=== PATIENT | female | born 1995 | race Caucasian/White ===

== ENCOUNTER → 2024-02-05 12:46 | Outpatient (REF) | payer BC, SELFPAY | LOC: WDC 12:46 | PROVIDERS: ATTENDING PHYSICIAN Nurse Practitioner Family | DX: N63.20 Unspecified lump in the left breast, unspecified quadrant (principal); N63.24 Unspecified lump in the left breast, lower inner quadrant | CPT/HCPCS: 76642 ==

== ENCOUNTER → 2024-07-23 13:50 | Outpatient (REF) | payer OTHER, SELFPAY | LOC: PNTC 13:50 | PROVIDERS: ATTENDING PHYSICIAN Nurse Practitioner Family | DX: O36.80X0 Pregnancy with inconclusive fetal viability, not applicable or unspecified (principal) | CPT/HCPCS: 76801 ==

== ENCOUNTER → 2024-08-11 13:25 | Outpatient (REF) | payer OTHER, SELFPAY | LOC: PNTC 13:25 | PROVIDERS: ATTENDING PHYSICIAN Obstetrics & Gynecology | DX: Z36.0 Encounter for antenatal screening for chromosomal anomalies (principal); Z36.82 Encounter for antenatal screening for nuchal translucency | CPT/HCPCS: 76801; 76813 ==

== ENCOUNTER → 2024-09-01 13:47 | Outpatient (REF) | payer OTHER, SELFPAY | LOC: PNTC 13:47 | PROVIDERS: ATTENDING PHYSICIAN Obstetrics & Gynecology | DX: O99.210 Obesity complicating pregnancy, unspecified trimester (principal) | CPT/HCPCS: 76805 ==

== ENCOUNTER → 2024-09-30 13:59 | Outpatient (REF) | payer OTHER, SELFPAY | LOC: PNTC 13:59 | PROVIDERS: ATTENDING PHYSICIAN Obstetrics & Gynecology | DX: O99.210 Obesity complicating pregnancy, unspecified trimester (principal) | CPT/HCPCS: 76811 ==

== ENCOUNTER 2024-10-03 10:58 | Emergency (ER) | payer OTHER, SELFPAY ==
[2024-10-03 11:05] VITALS: BP 137/96
--- NOTE | 2024-10-03 13:22 | ED.GENMED ---
History of Present Illness
<ROSIO Armendariz - Last Filed: 10/04/24 15:34>
General
Chief Complaint: Ear Problem
Source: patient
Exam Limitations: none
Time Seen by Provider: 10/03/24 13:03
Nursing documentation reviewed up to this point in time: agreed with
History of Present Illness
History of Present Illness:
Patient is a 28-year-old female 20 weeks presents to the ER for left ear pain. She has no complaints. She reports a week ago she got back from [place] and came back and just however start with left ear pain. She was
seen by urgent care October 01 and was started on antibiotic yesterday however pain is not getting worse. She reports pain is rating into her jaw into her neck anterior and behind her ear. She reports because the pain she is unable to fully open
her mouth. She denies fevers.
She is taking Tylenol however not relieving her symptoms. She does note that while in [place] she did not swim.
Past History
<ROSIO Armendariz - Last Filed: 10/04/24 15:34>
Past History
ED Past Medical History: None
ED Past Surgical History: None
Social History
Tobacco: Non-smoker
Employment: Employed
Review of Systems
<ROSIO Armendariz - Last Filed: 10/04/24 15:34>
Review of Systems
Allergies reviewed?: Yes
All Other Systems: ROS reviewed and negative except as documented in HPI and ROS
Constitutional: Reports no symptoms
EENT: Reports other (left ear pain radiating to neck)
Respiratory: Reports no symptoms
Cardiac: Reports no symptoms
ABD/GI: Reports no symptoms; Denies abdominal pain, nausea or vomiting
: Reports no symptoms
Musculoskeletal: Reports no symptoms
Skin: Reports no symptoms
Neurological: Reports no symptoms
Psychiatric: Reports no symptoms
Phy Exam
<ROSIO Armendariz - Last Filed: 10/04/24 15:34>
General Physical Exam
General Presentation: no apparent distress
General age: appears stated age
General Skin: warm and dry
General Habitus: normal
General Mental: alert
General Hydration: appears well hydrated
ENT Exam
ENT Exam: other (Patient with obvious tenderness over left ear tragus, tenderness of the mastoid region, ear canal visibly swollen, with+ small drainage visible, + mild trismus due to pain )
Eye Exam
Eye Exam: PERRL and EOMI
Cardiovascular Exam
Cardiovascular Exam: regular rate/rhythm, no murmur and normal peripheral pulses
Pulmonary Exam
Pulmonary Exam: lungs clear and no respiratory distress
Neurological Exam
Neurological Exam: alert and oriented x3
Musculoskeletal Exam
Musculoskeletal Exam: full ROM
Skin Exam
Skin Exam: normal color and warm/dry
Psychiatric Exam
Psychiatric Exam: normal mood/affect
Course
<ROSIO Armendariz - Last Filed: 10/04/24 15:34>
Orders/Labs/Results
Orders:
Orders
10/03/24 14:02
CT Head W/o Iv Contrast Urgent
Comment:
Reason For Exam: left ear pain; left facial pain, infected ear
IV Insert/Care/Rem.- Treatment PRN
0.9% Sodium Chloride 1000 ml [Nss] 1,000 ml IV BOLUS
10/03/24 14:03
CT Neck With Iv Contrast Urgent
Comment:
Reason For Exam: pain over mastoid and anterior to ear
10/03/24 14:14
Complete Blood Count/With Diff Urgent
Comprehensive Metabolic Panel Urgent
10/03/24 14:18
Morphine Sulfate 4 mg IV NOW STA
Abnormal Lab Results
10/03/24
14:14
WBC 12.8 H 10^3/uL
(4.8-10.8)
MPV 11.2 H fL
(7.4-10.4)
Abs Immat Gran (auto) 0.1 H 10^3/uL
(0-0.05)
Absolute Neuts (auto) 10.2 H 10^3/uL
(1.4-6.5)
Absolute Monos (auto) 0.9 H 10^3/uL
(0.1-0.6)
Immature Gran % 1.1 H %
(0-0.5)
Neutrophils % 79.7 H %
(42.2-75.2)
Lymphocytes % 11.0 L %
(20.5-51.1)
Creatinine 0.5 L mg/dL
(0.6-1.0)
10/03/24 14:14
10/03/24 14:14
Vital Signs
Initial and Last Documented VS:
Initial Vital Signs
Temp Pulse Resp BP Pulse Ox
97.8 F 104 20 137/96 100
10/03/24 11:05 10/03/24 11:05 10/03/24 11:05 10/03/24 11:05 10/03/24 11:05
Last Documented Vital Signs
Temp Pulse Resp BP Pulse Ox
97.8 F 104 20 137/96 100
10/03/24 11:05 10/03/24 11:05 10/03/24 11:05 10/03/24 11:05 10/03/24 11:05
Correctional Classification Counselor consulted with Physician
Correctional Classification Counselor consulted with physician?: Yes
Name of Physician Consulted: DR Brady
<Carlos Brady, DO - Last Filed: 10/03/24 14:00>
Orders/Labs/Results
Orders:
Orders
10/03/24 14:02
CT Head W/o Iv Contrast Urgent
Comment:
Reason For Exam: left ear pain; left facial pain, infected ear
IV Insert/Care/Rem.- Treatment PRN
0.9% Sodium Chloride 1000 ml [Nss] 1,000 ml IV BOLUS
10/03/24 14:03
CT Neck With Iv Contrast Urgent
Comment:
Reason For Exam: pain over mastoid and anterior to ear
10/03/24 14:14
Complete Blood Count/With Diff Urgent
Comprehensive Metabolic Panel Urgent
10/03/24 14:18
Morphine Sulfate 4 mg IV NOW STA
Abnormal Lab Results
10/03/24
14:14
WBC 12.8 H 10^3/uL
(4.8-10.8)
MPV 11.2 H fL
(7.4-10.4)
Abs Immat Gran (auto) 0.1 H 10^3/uL
(0-0.05)
Absolute Neuts (auto) 10.2 H 10^3/uL
(1.4-6.5)
Absolute Monos (auto) 0.9 H 10^3/uL
(0.1-0.6)
Immature Gran % 1.1 H %
(0-0.5)
Neutrophils % 79.7 H %
(42.2-75.2)
Lymphocytes % 11.0 L %
(20.5-51.1)
Creatinine 0.5 L mg/dL
(0.6-1.0)
10/03/24 14:14
10/03/24 14:14
Vital Signs
Initial and Last Documented VS:
Initial Vital Signs
Temp Pulse Resp BP Pulse Ox
97.8 F 104 20 137/96 100
10/03/24 11:05 10/03/24 11:05 10/03/24 11:05 10/03/24 11:05 10/03/24 11:05
Last Documented Vital Signs
Temp Pulse Resp BP Pulse Ox
97.8 F 104 20 137/96 100
10/03/24 11:05 10/03/24 11:05 10/03/24 11:05 10/03/24 11:05 10/03/24 11:05
<Usman Pope PA-C - Last Filed: 10/03/24 18:13>
Orders/Labs/Results
Orders:
Orders
10/03/24 14:02
CT Head W/o Iv Contrast Urgent
Comment:
Reason For Exam: left ear pain; left facial pain, infected ear
IV Insert/Care/Rem.- Treatment PRN
0.9% Sodium Chloride 1000 ml [Nss] 1,000 ml IV BOLUS
10/03/24 14:03
CT Neck With Iv Contrast Urgent
Comment:
Reason For Exam: pain over mastoid and anterior to ear
10/03/24 14:14
Complete Blood Count/With Diff Urgent
Comprehensive Metabolic Panel Urgent
10/03/24 14:18
Morphine Sulfate 4 mg IV NOW STA
Abnormal Lab Results
10/03/24
14:14
WBC 12.8 H 10^3/uL
(4.8-10.8)
MPV 11.2 H fL
(7.4-10.4)
Abs Immat Gran (auto) 0.1 H 10^3/uL
(0-0.05)
Absolute Neuts (auto) 10.2 H 10^3/uL
(1.4-6.5)
Absolute Monos (auto) 0.9 H 10^3/uL
(0.1-0.6)
Immature Gran % 1.1 H %
(0-0.5)
Neutrophils % 79.7 H %
(42.2-75.2)
Lymphocytes % 11.0 L %
(20.5-51.1)
Creatinine 0.5 L mg/dL
(0.6-1.0)
10/03/24 14:14
10/03/24 14:14
Vital Signs
Initial and Last Documented VS:
Initial Vital Signs
Temp Pulse Resp BP Pulse Ox
97.8 F 104 20 137/96 100
10/03/24 11:05 10/03/24 11:05 10/03/24 11:05 10/03/24 11:05 10/03/24 11:05
Last Documented Vital Signs
Temp Pulse Resp BP Pulse Ox
97.8 F 104 20 137/96 100
10/03/24 11:05 10/03/24 11:05 10/03/24 11:05 10/03/24 11:05 10/03/24 11:05
<ROSIO Armendariz - Last Filed: 10/04/24 15:34>
MDM/Problems Addressed
MDM/Problems Addressed:
As documented patient is a 20-week female presenting with left ear pain. She started with a left ear infection several days ago was on amoxicillin however complains of increasing pain. She complains pain now anterior to her ear behind the
ear and has pain with opening mouth. On exam she appears very uncomfortable she denies any fevers and is afebrile here her white count is 12.8. She does have obvious trismus on exam she is tender over the mastoid area and both to the anterior
ear/left face.
There is no redness to the face. Patient evaluated by ED physician Case discussed with radiology CAT scan of head along with CT neck with IV contrast ordered to collect for collection/mastoiditis.
Patient given fluids and medicated for pain.
1515: Patient to CAT now. Care of patient transferred to [facility] at this time.
<Usman Pope PA-C - Last Filed: 10/03/24 18:13>
*Radiology
Radiology exam reviewed: radiology read reviewed
*Critical Care Note
Total Time (30-74mins, 75-104mins- exclusive of procedures): Not Applicable
<Usman Pope PA-C - Last Filed: 10/03/24 18:13>
Patient Management
Escalation/DeEscalation of care consider admission/obs:
4 PM: Received patient in signout. Patient CT findings show a left otitis externa, there is no involvement of the middle ear and the mastoid air cells are without any fluid collections or signs of mastoiditis. I reevaluated the patient and while
she is still having pain she ultimately prefers to be discharged home. I did offer her a second round of pain medication here but patient declines. We will start the patient on Ciprodex and provide her with information for ENT to follow-up with as
needed. We discussed return precautions to the emergency department. Patient feels comfortable with this plan.
ED Attending Note
<ROSIO Armendariz - Last Filed: 10/04/24 15:34>
-
Portions of this chart may have been created with voice recognition software.� Occasional wrong word or��sound alike� substitutions may have occurred due to the inherent limitations of voice recognition software.
<Carlos Brady DO - Last Filed: 10/03/24 14:00>
ED Attending Note
Patient seen and examined by attending physician: Yes
I performed the substantive portion of visit, reviewed & personally made and approve the management plan that is documented in note by myself or OSMAN.: Yes
ED Attending Note:
I agree with Holly's note
28-year-old female who is 20 weeks presents complaining of pain in her left ear and in the area surrounding her ear. She has significant pain when she tries to open her mouth. Symptoms began several days ago while on a flight home from
[place]. While in [place] she notes she did not go into the ocean. She felt some pressure in her ear during the flight but because she is did not take any decongestants. Pain and congestion has increased in severity. She was seen at an
urgent care and started on amoxicillin for a otitis media on the left. However the pain has become severe and she is tearful upon my arrival to the room. Patient denies any significant medical history.
Head: Normocephalic, atraumatic
Ears: Left ear appears somewhat erythematous. There is some swelling and flaking of the external auditory canal but I can see the left tympanic membrane which is quite erythematous. Patient has significant tenderness palpation anterior to the ear
in the region of the TMJ. She also has significant tenderness to palpation over the mastoid region. There is left-sided lymphadenopathy which is tender.
Mouth: Some extent of trismus but intraorally appears normal as best I can see
Patient presents with severe left ear pain, trismus. Concern for mastoiditis or other deep space infection involving left ear. Patient will require imaging to further exclude serious pathology.
Discharge Plan
Departure
Patient Disposition: Home (Routine Discharge)
Date of Disposition: 10/03/24
Time of Disposition: 16:02
Patient with high blood pressure during this ER visit?: Yes
Discharge Problem:
Acute otitis externa of left ear
Instructions: Outer Ear Infection (DC)
Prescriptions:
New
ciprofloxacin-dexamethasone 0.3-0.1 % drops,suspension
4 drp otic (ear) BID 7 Days Qty: 7.5 0RF
No Action
[facility] [] 1 EACH tablet
1 ea PO Daily
levothyroxine [Synthroid] 150 mcg Tablet
150 mcg PO DAILY
acetaminophen 325 mg Tablet
650 mg PO Q4HPRN PRN (Reason: mild pain) Qty: 0 0RF
levothyroxine 150 mcg Tablet
150 mcg PO DAILY@0700 Qty: 0 0RF
ibuprofen 600 mg Tablet
400 mg PO Q4HPRN PRN (Reason: moderate pain/cramps) Qty: 0 0RF
Referrals:
Mulu Fry CRNP [Family Provider] -
Art Rm MD [Active] - (ENT - Call as needed)
Interventions
Interventions:
*Risk Screen - Suicide Last Done: 10/03/24 11:05
*General Assessment Last Done: 10/03/24 12:50
*Neglect/Abuse Screening Last Done: 10/03/24 11:05
*ED- Fall Risk Assessment Last Done: 10/03/24 12:50
*ED COVID-19 Vaccine History Last Done: 10/03/24 12:50
*Nursing Disposition Last Done: 10/03/24 16:10
Discharge Date and Time
Discharge Date/Time: 10/03/24 16:45
Print Language: GREEK
[2024-10-03] MEDS: NSS 1000 IV (14:23)
[2024-10-03] MEDS: MORPHINE SULFATE 4 MG IV (14:23)
[2024-10-03 14:31] VITALS: BMI 35.0
[2024-10-03 14:31] LABS: % Basophils 0.3 % (0-2); % Eosinophils 0.5 % (0-6); % Immature Granulocytes 1.1 % (0-0.5); % Monocytes 7.4 % (1.7-9.3); % Neutrophils 79.7 % (42.2-75.2); Absolute Eosinophils 0.1 10^3/uL (0-0.7); Absolute Immature Granulocytes 0.1 10^3/uL (0-0.05); Absolute Lymphocytes 1.4 10^3/uL (1.2-3.4); Absolute Monocytes 0.9 10^3/uL (0.1-0.6); Absolute Neutrophils 10.2 10^3/uL (1.4-6.5); Hemoglobin 13.7 g/dL (12.0-16.0); Mean Corp Hgb Conc. 35.1 g/dL (33.0-37.0); Mean Corpuscular Hgb 30.4 pg (27.0-31.0); Mean Corpuscular Volume 86.5 fL (81.0-99.0); Mean Platelet Volume 11.2 fL (7.4-10.4); Nucleated Red Blood Cells % 0 %; Platelet Count 208 10^3/uL (130-400); Red Blood Cell Count 4.51 10^6/uL (4.20-5.40); White Blood Cell Count 12.8 10^3/uL (4.8-10.8)
[2024-10-03 14:48] LABS: ALT (SGPT) 20 U/L (0-35); AST (SGOT) 22 U/L (14-36); Albumin 3.9 g/dl (3.5-5.0); Alkaline Phosphatase 99 U/L (38-126); Blood Urea Nitrogen 8 mg/dl (7-17); Calcium 10.2 mg/dl (8.4-10.2); Carbon Dioxide 25 mmol/L (22-30); Chloride 104 mmol/L (98-107); Estimated Creatinine Clearance > 125 ml/min; Glucose 89 mg/dl (70-99); Potassium 4.2 mmol/L (3.5-5.1); Sodium 138 mmol/L (135-145); Total Bilirubin 0.6 mg/dl (0.2-1.3); Total Protein 7.1 g/dl (6.3-8.2); eGFR > 60.00
== END 2024-10-03 16:45 | disposition home or self-care (01) ==
LOC: EMR 10:58
PROVIDERS: Nurse Practitioner; EMERGENCY PHYSICIAN Emergency Medicine; FAMILY PHYSICIAN Nurse Practitioner Family
DX: O99.891 Other specified diseases and conditions complicating pregnancy (principal); H60.502 Unspecified acute noninfective otitis externa, left ear; Z3A.20 20 weeks gestation of pregnancy
CPT/HCPCS: 99284; 70450; 70491; 80053; 85025; Q9967

== ENCOUNTER → 2024-11-26 15:29 | Outpatient (REF) | payer OTHER, SELFPAY | LOC: PNTC 15:29 | PROVIDERS: ATTENDING PHYSICIAN Obstetrics & Gynecology | DX: Z34.90 Encounter for supervision of normal pregnancy, unspecified, unspecified trimester (principal) | CPT/HCPCS: 36415; 86850; 86900; 86901; 96372; J2790 ==

== ENCOUNTER 2024-12-20 02:22 | Observation (INO) | payer OTHER, SELFPAY ==
[2024-12-20 02:51] VITALS: BMI 35.3
[2024-12-20 03:15] LABS: Hematocrit 31.2 % (37.0-47.0); Hemoglobin 11.2 g/dL (12.0-16.0); Mean Corp Hgb Conc. 35.9 g/dL (33.0-37.0); Mean Corpuscular Hgb 30.1 pg (27.0-31.0); Mean Corpuscular Volume 83.9 fL (81.0-99.0); Mean Platelet Volume 11.6 fL (7.4-10.4); Platelet Count 187 10^3/uL (130-400); Red Blood Cell Count 3.72 10^6/uL (4.20-5.40); Red Cell Dist. Width 12.9 % (11.5-14.5)
[2024-12-20 03:44] LABS: INR 0.91; PT 12.6 Sec (11.4-14.6)
[2024-12-20 03:45] LABS: APTT 27.4 Sec (23.4-35.0); Fibrinogen 516 MG/DL (199-459)
== END 2024-12-20 07:30 | disposition home or self-care (01) ==
LOC: LDRP 02:22
PROVIDERS: ADMITTING PHYSICIAN Student in an Organized Health Care Education/Training Program
DX: O46.8X3 Other antepartum hemorrhage, third trimester (principal); O26.893 Other specified pregnancy related conditions, third trimester; Z67.41 Type O blood, Rh negative; Z3A.31 31 weeks gestation of pregnancy
CPT/HCPCS: 76815; 85027; 85384; 85460; 85610; 85730; 86850; 86870; 86900; 86901; G0378

== ENCOUNTER → 2025-01-06 14:09 | Outpatient (REF) | payer OTHER, SELFPAY | LOC: PNTC 14:09 | PROVIDERS: ATTENDING PHYSICIAN Obstetrics & Gynecology | DX: Z34.90 Encounter for supervision of normal pregnancy, unspecified, unspecified trimester (principal) | CPT/HCPCS: 59025; 76816 ==

== ENCOUNTER 2025-01-08 09:21 | Observation (INO) | payer OTHER, SELFPAY ==
[2025-01-08 09:37] VITALS: BP 147/77; BMI 35.3
[2025-01-08 10:19] LABS: Hematocrit 33.6 % (37.0-47.0); Hemoglobin 11.5 g/dL (12.0-16.0); Mean Corp Hgb Conc. 34.2 g/dL (33.0-37.0); Mean Corpuscular Volume 84.6 fL (81.0-99.0); Platelet Count 165 10^3/uL (130-400); Red Cell Dist. Width 13.3 % (11.5-14.5)
[2025-01-08 10:28] LABS: Urine Character Clear (Clear)
[2025-01-08 10:48] LABS: ALT (SGPT) 21 U/L (0-35); AST (SGOT) 21 U/L (14-36); Albumin 3.5 g/dl (3.5-5.0); Alkaline Phosphatase 124 U/L (38-126); Blood Urea Nitrogen 4 mg/dl (7-17); Calcium 8.8 mg/dl (8.4-10.2); Carbon Dioxide 21 mmol/L (22-30); Chloride 109 mmol/L (98-107); Estimated Creatinine Clearance > 125 ml/min; Glucose 124 mg/dl (70-99); Potassium 3.7 mmol/L (3.5-5.1); Sodium 135 mmol/L (135-145); Total Protein 6.2 g/dl (6.3-8.2); eGFR > 60.00
[2025-01-08 10:50] LABS: Urine Red Blood Cell 0-2 /HPF (0-2)
== END 2025-01-08 13:13 | disposition home or self-care (01) ==
LOC: LDRP 09:21
PROVIDERS: ADMITTING PHYSICIAN Obstetrics & Gynecology
DX: O36.8330 Maternal care for abnormalities of the fetal heart rate or rhythm, third trimester, not applicable or unspecified (principal); O26.893 Other specified pregnancy related conditions, third trimester; R51.9 Headache, unspecified; Z3A.34 34 weeks gestation of pregnancy
CPT/HCPCS: 80053; 81003; 81015; 82570; 84156; 85027; 86850; 86870; 86900; 86901; G0378

== ENCOUNTER → 2025-01-11 13:59 | Outpatient (REF) | payer OTHER, SELFPAY | LOC: PNTC 13:59 | PROVIDERS: ATTENDING PHYSICIAN Obstetrics & Gynecology | DX: O99.210 Obesity complicating pregnancy, unspecified trimester (principal); Z87.59 Personal history of other complications of pregnancy, childbirth and the puerperium | CPT/HCPCS: 59025; 76815 ==

== ENCOUNTER → 2025-01-18 13:49 | Outpatient (REF) | payer OTHER, SELFPAY | LOC: PNTC 13:49 | PROVIDERS: ATTENDING PHYSICIAN Obstetrics & Gynecology | DX: O99.210 Obesity complicating pregnancy, unspecified trimester (principal); Z87.59 Personal history of other complications of pregnancy, childbirth and the puerperium | CPT/HCPCS: 59025; 76815 ==

== ENCOUNTER → 2025-01-25 14:47 | Outpatient (REF) | payer OTHER, SELFPAY | LOC: PNTC 14:47 | PROVIDERS: ATTENDING PHYSICIAN Obstetrics & Gynecology | DX: O13.9 Gestational [pregnancy-induced] hypertension without significant proteinuria, unspecified trimester (principal) | CPT/HCPCS: 59025; 76815 ==

== ENCOUNTER 2025-02-01 16:06 | Inpatient (IN) | payer OTHER, SELFPAY ==
[2025-02-01 15:20] VITALS: BP 140/79; BMI 35.3
[2025-02-01] MEDS: TYLENOL 975 MG PO (15:43)
[2025-02-01] MEDS: LR 1000 IV ×2 (16:15→21:10)
[2025-02-01 16:32] LABS: Hematocrit 35.3 % (37.0-47.0); Hemoglobin 12.0 g/dL (12.0-16.0); Mean Corp Hgb Conc. 34.0 g/dL (33.0-37.0); Mean Corpuscular Volume 81.3 fL (81.0-99.0); Nucleated Red Blood Cells % 0 %; Platelet Count 179 10^3/uL (130-400); Red Cell Dist. Width 13.4 % (11.5-14.5)
[2025-02-01 16:45] LABS: ALT (SGPT) 22 U/L (0-35); AST (SGOT) 25 U/L (14-36); Albumin 3.7 g/dl (3.5-5.0); Alkaline Phosphatase 155 U/L (38-126); Blood Urea Nitrogen 5 mg/dl (7-17); Calcium 9.4 mg/dl (8.4-10.2); Carbon Dioxide 21 mmol/L (22-30); Chloride 106 mmol/L (98-107); Estimated Creatinine Clearance > 125 ml/min; Glucose 126 mg/dl (70-99); Potassium 4.0 mmol/L (3.5-5.1); Sodium 136 mmol/L (135-145); Total Protein 6.7 g/dl (6.3-8.2); eGFR > 60.00
[2025-02-01] MEDS: BRETHINE 250 MCG SC (16:56)
[2025-02-01] MEDS: MAGNESIUM SULFATE 100 IV (18:21)
[2025-02-01] MEDS: PITOCIN 30 UNITS/NSS 500 ML IV (18:43)
[2025-02-01] MEDS: MAGNESIUM SULFATE 40 GRAM 1000 IV (18:44)
[2025-02-01] MEDS: TUMS CHEWABLE TABLET 400 MG PO (21:10)
[2025-02-02] MEDS: FENTANYL/BUPIVACAINE 100 EPIDURAL ×2 (12:57→21:21)
[2025-02-02] MEDS: SUBLIMAZE 100 MCG EPIDURAL (12:57)
[2025-02-02] MEDS: MAGNESIUM SULFATE 40 GRAM 1000 IV (13:31)
[2025-02-02 19:03] LABS: Magnesium 4.9 mg/dl (1.6-2.3)
[2025-02-02] MEDS: TUMS CHEWABLE TABLET 400 MG PO (21:25)
[2025-02-02] MEDS: PITOCIN 30 UNITS/NSS 500 ML IV ×2 (21:25→22:01)
[2025-02-02] MEDS: TRANEXAMIC ACID 100 IV (22:15)
[2025-02-03] MEDS: HYDROCORTISONE 2.5% OINTMENT 1 APPLIC TOPICAL (05:15)
[2025-02-03] MEDS: MOTRIN 600 MG PO ×3 (05:15→23:15)
[2025-02-03] MEDS: SYNTHROID 200 MCG PO (05:15)
[2025-02-03 05:33] LABS: Hematocrit 30.8 % (37.0-47.0); Hemoglobin 10.5 g/dL (12.0-16.0)
[2025-02-03] MEDS: COLACE 100 MG PO (08:14)
[2025-02-03] MEDS: TYLENOL 650 MG PO (21:06)
[2025-02-03] MEDS: COLACE PO (21:06)
[2025-02-04] MEDS: MOTRIN 600 MG PO (05:58)
[2025-02-04] MEDS: SYNTHROID 200 MCG PO (05:58)
[2025-02-04] MEDS: RHOGAM 300 MCG IM (11:33)
[2025-02-04] MEDS: COLACE PO (11:58)
[2025-02-05 11:13] LABS: Syphilis/T. pallidum Ab Reflex Negative (Negative)
== END 2025-02-04 12:11 | disposition home or self-care (01) | DRG 807 ==
LOC: LDRP 16:06
PROVIDERS: Obstetrics & Gynecology; ADMITTING PHYSICIAN Obstetrics & Gynecology; ATTENDING PHYSICIAN Obstetrics & Gynecology
PROC: 10S0XZZ Reposition Products of Conception, External Approach (ICD-10-PCS; 2025-02-01)
PROC: 10E0XZZ Delivery of Products of Conception, External Approach (ICD-10-PCS; 2025-02-02)
PROC: 3E033VJ Introduction of Other Hormone into Peripheral Vein, Percutaneous Approach (ICD-10-PCS; 2025-02-02)
PROC: 10907ZC Drainage of Amniotic Fluid, Therapeutic from Products of Conception, Via Natural or Artificial Opening (ICD-10-PCS; 2025-02-02)
PROC: 3E0234Z Introduction of Serum, Toxoid and Vaccine into Muscle, Percutaneous Approach (ICD-10-PCS; 2025-02-03)
DX: O14.14 Severe pre-eclampsia complicating childbirth (principal); Z37.0 Single live birth; Z3A.38 38 weeks gestation of pregnancy; O64.1XX0 Obstructed labor due to breech presentation, not applicable or unspecified
CPT/HCPCS: 59025; 76816; 80053; 83735; 85014; 85018; 85025; 85461; 86780; 86850; 86900; 86901; 88307; 93005; J2790